=== PATIENT | male | born 1950 | race Hispanic/Latino ===

== ENCOUNTER → 2024-01-31 | Outpatient (CLI) | payer OTHER | END | disposition home or self-care (01) | LOC: SHCH 11:03 | PROVIDERS: ATTEND Internal Medicine Cardiovascular Disease | DX: I87.2 Venous insufficiency (chronic) (peripheral) (principal); R60.9 Edema, unspecified; R01.1 Cardiac murmur, unspecified; E78.49 Other hyperlipidemia; Z79.899 Other long term (current) drug therapy | CPT/HCPCS: 93970 ==

== ENCOUNTER → 2024-03-29 | Outpatient (CLI) | payer OTHER | END | disposition home or self-care (01) | LOC: SHCH 10:08 | PROVIDERS: ATTEND Internal Medicine Cardiovascular Disease | DX: I87.2 Venous insufficiency (chronic) (peripheral) (principal) | CPT/HCPCS: 93971 ==

== ENCOUNTER → 2024-04-05 | Outpatient (CLI) | payer OTHER | END | disposition home or self-care (01) | LOC: SHCH 10:37 | PROVIDERS: ATTEND Internal Medicine Cardiovascular Disease | DX: Z09 Encounter for follow-up examination after completed treatment for conditions other than malignant neoplasm (principal); I87.2 Venous insufficiency (chronic) (peripheral) | CPT/HCPCS: 93971 ==